=== PATIENT | female | born 1945 | race Caucasian/White ===

== ENCOUNTER 2021-06-07 11:24 | Emergency (ER) | payer MEDICARE, OTHER ==
[~2021-06-07] VITALS: Ht 167 cm; Wt 88.0 kg
[2021-06-07 11:39] VITALS: BP 147/84
--- NOTE | 2021-06-07 11:41 | ED Headache ---
General Chief Complaint: Head/Cervical Problems Stated Complaint: HEADACHE Source: patient Exam Limitations: no limitations History of Present Illness Date Seen by Provider: Jun 07, 2021 Time Seen by Provider: 11:26 Initial Comments 75-year-old female with no significant past medical history coming in due to moderate, intermittent frontal headache. She states she had it for 3 days over [place] starting on 27 May. Stopped having it on May 29. Started again yesterday evening. Was slow in onset of pain to its maximal point. Never did, abruptly. She took ibuprofen 600 mg last night which took care of it. She says this morning it was mild, and upon arriving to the emergency department her headache is completely gone. Has had a mild cough and some general mild body aches as well over the course of the past couple days. Denies any trauma, neck stiffness, vomiting, diarrhea, focal weakness or numbness, vision changes, or any other concerns. Does have a history of migraines, but typically gets them monthly, and they generally feel slightly different than this. Has had for coronavirus vaccine as well as booster. Allergies and Home Medications Allergies Coded Allergies: No Known Drug Allergies (Unverified , 06/07/21) Patient Home Medication List Home Medication List Reviewed: Yes Review of Systems Review of Systems Constitutional: No chills, No fever Eyes: Denies Blurred Vision Ears, Nose, Mouth, Throat: denies nose discharge Respiratory: cough; No short of breath Cardiovascular: No chest pain Gastrointestinal: No abdominal pain, No diarrhea, No nausea, No vomiting Genitourinary: No dysuria Musculoskeletal: no symptoms reported Skin: no symptoms reported Psychiatric/Neurological: Headache All Other Systems Reviewed Negative Unless Noted: Yes Past Wgejqxi-Uwjcbs-Xljdam Hx Patient Social History Tobacco Use?: No Substance use?: No Alcohol Use?: Yes Alcohol type: Beer Alcohol Frequency: Once in a while Pt feels they are or have been: No Past Medical History Surgeries: Yes Hysterectomy Physical Exam Vital Signs Vital Signs - First Documented 06/07/21 11:39 Temp 35.4 Pulse 88 Resp 16 B/P (MAP) 147/84 (105) O2 Delivery Room Air Capillary Refill : Height, Weight, BMI Height: '" Weight: lbs. oz. kg; BMI Method: General Appearance: WD/WN, no apparent distress HEENT: PERRL/EOMI, normal ENT inspection, TMs normal, pharynx normal Neck: non-tender, full range of motion, supple, normal inspection Cardiovascular: regular rate, rhythm, no edema, no murmur Respiratory: chest non-tender, lungs clear, normal breath sounds, no respiratory distress, no accessory muscle use Gastrointestinal: normal bowel sounds, non tender, soft; No distended, No guarding, No rebound Back: normal inspection, no CVA tenderness, no vertebral tenderness Extremities: normal range of motion, non-tender, normal inspection, no pedal edema, no calf tenderness, normal capillary refill Psychiatric: alert, oriented x 3 Crainal Nerves: normal hearing, normal speech, PERRL Coordination/Gait: normal finger to nose, normal gait Motor/Sensory: no motor deficit, no sensory deficit, no pronator drift Skin: normal color, warm/dry Lymphatic: no adenopathy Progress/Results/Core Measures Results/Orders Lab Results Laboratory Tests Test 06/07/21 11:46 Range/Units Influenza Type A Antigen NEGATIVE NEGATIVE Influenza Type B Antigen NEGATIVE NEGATIVE My Orders Orders - ESTEE LORENZO MD Ct Head Wo (06/07/21 11:41) Influenza A & B Antigens (06/07/21 11:41) Acetaminophen Tablet (Tylenol Tablet) (06/07/21 11:45) Coronavirus Sars-Cov-2 So 2019 (06/07/21 11:45) Medications Given in ED Current Medications Medications Dose Ordered Sig/Efraín Route Start Time Stop Time Status Last Admin Dose Admin Acetaminophen 1,000 mg ONCE ONCE PO 06/07/21 11:45 06/07/21 11:46 DC 06/07/21 11:47 1,000 MG Vital Signs/I&O 06/07/21 11:39 Temp 35.4 Pulse 88 Resp 16 B/P (MAP) 147/84 (105) O2 Delivery Room Air Progress Progress Note : Progress Note 75-year-old female with above history coming in due to headache. ABCs were intact and vitals were stable on presentation. Physical exam including complete neuro assessment is normal. She is overall well-appearing and has no meningismus or fever. Very unlikely that she has meningitis. It was slow in onset, and currently her headache is gone making a subarachnoid hemorrhage very unlikely. Never had any vision changes and overall lower suspicion for temporal arteritis. She was given Tylenol in the emergency department to hopefully avoid it from coming back while here. Given the cough and mild body aches associated with this, could be viral in nature. We will do flu testing as well as Covid testing. We will do a CT of her head given the episodic nature of these headaches recently that is unusual for her especially given her age. CT head was negative for any acute abnormalities and flu testing is negative. Patient is well-appearing and asymptomatic at this time. I believe she is stable for follow-up as an outpatient. She was sent home with strict return precautions. Diagnostic Imaging Diagonstic Imaging: CT (head) Comments [facility], [place] NAME: KATTY ARRIOLA [facility] REC#: [id number] PT STATUS: REG ER : 1945 PHYSICIAN: ESTEE LORENZO MD ADMIT DATE: 06/07/21/ER FS Signed Date of Exam:06/07/21 CT HEAD WO PROCEDURE: CT head without contrast. TECHNIQUE: Multiple contiguous axial images were obtained through the brain without the use of intravenous contrast. Auto Exposure Controls were utilized during the CT exam to meet ALARA standards for radiation dose reduction. INDICATION: New onset headache COMPARISON: None available. FINDINGS: No hyperdense hemorrhage or space-occupying mass. No hydrocephalus or midline shift. The basilar cisterns are normal. Jorgensen-white matter differentiation is well preserved. The mastoid air cells are clear. Paranasal sinuses are normal. No focal osseous abnormality of the calvarium. IMPRESSION: 1. No acute intracranial process. Dictated by: Dictated on workstation # [id number] Dict: 06/07/21 1208 Trans: 06/07/21 1209 [facility] [id number] Interpreted by: MICHELLE BURT MD Electronically signed by: MICHELLE BURT MD 06/07/21 1209 Departure Impression Primary Impression: Headache Qualified Codes: R51.9 - Headache, unspecified Disposition: HOME, SELF-CARE Condition: Stable Departure-Patient Inst. Decision time for Depature: 12:19 Referrals: KEVIN HENDERSON MD (PCP) Primary Care Physician Patient Instructions: Headache, Adult (DC) Add. Discharge Instructions: You were seen in the emergency department for your headache. The CT scan of your head was reassuring we did not find anything new or unusual. Your flu test is negative and your Covid test is pending and should come back likely by tomorrow. Take Tylenol 1000 mg every 6-8 hours as needed for headache with plenty of fluids. If you continue to have headache on top of this you can take ibuprofen 400 mg every 6 hours as well. If these headaches continue then I want you to follow-up with your regular doctor because they may want to refer you to a neurologist. Work/School Note: Work Release Form Date Seen in the Emergency Department: Jun 07, 2021 Return to Work: Jun 08, 2021 Restrictions: No Restrictions ESTEE LORENZO MD Jun 07, 2021 11:41
[2021-06-07] MEDS ORDERED: ACETAMINOPHEN 500 MG TAB (TYLENOL) PO ONE (11:45)
--- NOTE | 2021-06-07 12:11 | Diagnostic Imaging Report ---
PROCEDURE: CT head without contrast. TECHNIQUE: Multiple contiguous axial images were obtained through the brain without the use of intravenous contrast. Auto Exposure Controls were utilized during the CT exam to meet ALARA standards for radiation dose reduction. INDICATION: New onset headache COMPARISON: None available. FINDINGS: No hyperdense hemorrhage or space-occupying mass. No hydrocephalus or midline shift. The basilar cisterns are normal. Jorgensen-white matter differentiation is well preserved. The mastoid air cells are clear. Paranasal sinuses are normal. No focal osseous abnormality of the calvarium. IMPRESSION: 1. No acute intracranial process. Dictated by: Dictated on workstation # [id number]
== END 2021-06-07 12:25 | disposition home or self-care (01) ==
LOC: EDUNIT# 11:24 → ER FS 11:27
DX: R51.9 Headache, unspecified (principal); Z20.822 Contact with and (suspected) exposure to COVID-19
CPT/HCPCS: 70450; 87635; 87804

== ENCOUNTER 2021-07-17 09:48 | Emergency (ER) | payer MEDICARE, OTHER ==
[2021-07-17 09:52] VITALS: BP 132/70
[2021-07-17] MEDS ORDERED: ACETAMINOPHEN 500 MG TAB (TYLENOL) PO ONE (10:00)
--- NOTE | 2021-07-17 10:13 | ED General ---
General Chief Complaint: General Problems/Pain Stated Complaint: GENERAL ACHING; LETHARGY; HEADACHE Source of Information: Patient Exam Limitations: No Limitations History of Present Illness Date Seen by Provider: Jul 17, 2021 Time Seen by Provider: 09:52 Initial Comments 75-year-old female with no significant past medical history coming in due to 3 days of body aches, general malaise, mild headache, cough. Has been taking [id number] cold and flu medicine which has been helping. Has been tolerating p.o. Denies any chest pain, shortness of breath, abdominal pain, nausea, vomiting, diarrhea, objective fever that she knows of, weakness, numbness, rash, or any other concerns. Is unsure if she has been around anyone sick. Has been vaccinated for COVID x2. Allergies and Home Medications Allergies Coded Allergies: No Known Drug Allergies (Unverified , 06/07/21) Patient Home Medication List Home Medication List Reviewed: Yes Review of Systems Review of Systems Constitutional: chills; No fever EENTM: No blurred vision Respiratory: cough; No short of breath Cardiovascular: No chest pain Gastrointestinal: No abdominal pain, No diarrhea, No nausea, No vomiting Genitourinary: no symptoms reported Musculoskeletal: no symptoms reported Skin: no symptoms reported Psychiatric/Neurological: No Symptoms Reported Hematologic/Lymphatic: No Symptoms Reported Immunological/Allergic: no symptoms reported All Other Systems Reviewed Negative Unless Noted: Yes Past Ewqeajw-Zvqqgz-Sqyayu Hx Patient Social History Tobacco Use?: No Use of E-Cig and/or Vaping dev: No Substance use?: No Alcohol Use?: No Pt feels they are or have been: No Immunizations Up To Date First/Initial COVID19 Vaccinat: 2020 Second COVID19 Vaccination Amilcar: 2020 Past Medical History Surgeries: Yes Hysterectomy Physical Exam Vital Signs Vital Signs - First Documented 07/17/21 09:52 Temp 36.5 Pulse 106 Resp 18 B/P (MAP) 132/70 (90) Pulse Ox 96 Capillary Refill : Height, Weight, BMI Height: '" Weight: lbs. oz. kg; 31.00 BMI Method: General Appearance: No Apparent Distress, WD/WN Eyes: Bilateral Eye Normal Inspection HEENT: PERRL/EOMI, Normal ENT Inspection, Pharynx Normal Neck: Full Range of Motion, Normal Inspection, Non Tender, Supple Respiratory: Chest Non Tender, Lungs Clear, Normal Breath Sounds, No Accessory Muscle Use, No Respiratory Distress Cardiovascular: Regular Rate, Rhythm, No Edema, Normal Peripheral Pulses Gastrointestinal: Normal Bowel Sounds, Non Tender, Soft; No Distended, No Guarding Back: Normal Inspection, No CVA Tenderness, No Vertebral Tenderness Extremity: Normal Capillary Refill, Normal Inspection, Normal Range of Motion, Non Tender, No Calf Tenderness, No Pedal Edema Neurologic/Psychiatric: Alert, No Motor/Sensory Deficits, Normal Mood/Affect Skin: Normal Color, Warm/Dry Lymphatic: No Adenopathy Progress/Results/Core Measures Suspected Sepsis SIRS Temperature: Pulse: Respiratory Rate: Blood Pressure / Mean: Results/Orders Lab Results Laboratory Tests Test 07/17/21 10:00 Range/Units Influenza Type A Antigen NEGATIVE NEGATIVE Influenza Type B Antigen NEGATIVE NEGATIVE My Orders Orders - ESTEE LORENZO MD Covid 19 Inhouse Test (07/17/21 09:57) Influenza A & B Antigens (07/17/21 09:57) Acetaminophen Tablet (Tylenol Tablet) (07/17/21 10:00) Vital Signs/I&O 07/17/21 09:52 Temp 36.5 Pulse 106 Resp 18 B/P (MAP) 132/70 (90) Pulse Ox 96 Capillary Refill : Progress Note : Progress Note Well-appearing 75-year-old female coming in due to flulike symptoms. ABCs were intact, vital stable, and once again well-appearing. No abnormalities on physical exam. Flu and COVID testing sent and is pending at this time. Given Tylenol for her body aches. Flu testing is negative and COVID is still pending at this time. She continues to look well and vitals continue to be within normal limits. I believe the patient is stable for discharge with outpatient follow-up. She was sent home with strict return precautions. Departure Impression Primary Impression: Flu-like symptoms Additional Impression: Person under investigation for COVID-19 Disposition: 01 HOME, SELF-CARE Condition: Stable Departure-Patient Inst. Decision time for Depature: 10:28 Referrals: KEVIN HENDERSON MD (PCP) Primary Care Physician Patient Instructions: COVID-19 Overview Add. Discharge Instructions: You appear to have a flulike illness. Her flu test, which are not perfect are negative. The Covid test will come back later today or tomorrow, somebody should call you especially if you are positive. I recommend taking Tylenol 1000 mg every 6 hours for body aches. Try to take frequent small sips of fluids to stay hydrated. Something such as Gatorade or even juices would be okay. If you begin feeling severely short of breath, or unable to keep any fluid down, or have any other concerns and please call your regular doctor or come back to the ER. ESTEE LORENZO MD Jul 17, 2021 10:13
== END 2021-07-17 10:32 | disposition home or self-care (01) ==
LOC: EDUNIT# 09:48 → ER FS 09:49
DX: U07.1 COVID-19 (principal)
CPT/HCPCS: 87636; 87804